=== PATIENT | female | born 1970 | race Caucasian/White ===

== ENCOUNTER 2024-10-11 08:51 | Day surgery (SDC) | payer OTHER ==
[2024-10-07 15:27] VITALS: BMI 41.1
[2024-10-11 09:16] VITALS: TEMP 97.6
[2024-10-11] MEDS: LACTATED RINGERS 1,000 ML IV SCH (09:19)
[2024-10-11] MEDS: LIDOCAINE 1% (10MG/ML) FOR IV START INTRADERMA STA (09:20)
[2024-10-11] MEDS: IV FLUID CONTINUATION 1,000 ML IV ONE (09:20)
[2024-10-11 09:40] LABS: Glucose,Whole Blood 79 mg/dL (70-110)
[2024-10-11] MEDS ORDERED: PROPOFOL 10 MG/ML 20 ML VIAL IV ONE (09:58)
[2024-10-11] MEDS ORDERED: LIDOCAINE 1% INJ 10MG/ML (20 ML MDV) ONE (09:58)
--- NOTE | 2024-10-11 10:02 | P.GSHP ---
History of Present Illness H&P Date: 10/11/24 Chief Complaint: Colon cancer screening 54-year-old female here for colonoscopy. She has not had 1 previously. Father with history of colon cancer. No bowel complaints. Past Medical History Past Medical History: Hypertension Additional Past Medical History / Comment(s): Pre- Diabetic History of Any Multi-Drug Resistant Organisms: None Reported Past Surgical History: Tonsillectomy Additional Past Surgical History / Comment(s): [place] Past Anesthesia/Blood Transfusion Reactions: No Reported Reaction Smoking Status: Never smoker - Past Family History Mother Family Medical History: No Reported History Father Family Medical History: Cancer Additional Family Medical History / Comment(s): Colon Medications and Allergies Home Medications Medication Instructions Recorded Confirmed Type lisinopriL 2.5 mg PO DAILY 10/07/24 10/07/24 History Allergies Allergy/AdvReac Type Severity Reaction Status Date / Time No Known Allergies Allergy Verified 10/11/24 09:46 Surgical - Exam Vital Signs Temp Pulse Resp BP Pulse Ox 97.6 F 86 16 144/96 100 10/11/24 09:14 10/11/24 09:14 10/11/24 09:14 10/11/24 09:14 10/11/24 09:14 Physical exam: General: Well-developed, well-nourished HEENT: Normocephalic, sclerae nonicteric Abdomen: Nontender, nondistended Extremities: No edema Neuro: Alert and oriented Assessment and Plan (1) Colon cancer screening Narrative/Plan: Will proceed with colonoscopy at this time. Current Visit: Yes Status: Acute Code(s): Z12.11 - ENCOUNTER FOR SCREENING FOR MALIGNANT NEOPLASM OF COLON SNOMED Code(s): 170572410
--- NOTE | 2024-10-11 10:17 | P.PCN ---
Date of Procedure: 10/11/24 Procedure(s) Performed: PREOPERATIVE DIAGNOSIS: Colon cancer screening, family history of colon cancer POSTOPERATIVE DIAGNOSIS: Transverse colon polyp x 2, diverticulosis PROCEDURE: Colonoscopy with snare polypectomy ANESTHESIA: MAC SURGEON: Yann Maldonado M.D. SPECIMENS: Polyps ENDOSCOPIC PROCEDURE: The patient was placed on the endoscopy table in the left decubitus position. The Olympus colonoscope was inserted into the anus and passed under direct visualization to the base of the cecum. The appendiceal orifice was visualized. From that point the scope was slowly withdrawn inspecting all surfaces carefully. There were no neoplastic inflammatory or polypoid lesions throughout the cecum and ascending colon. In the transverse colon she was smaller polyps were found and removed using the snare with cautery technique. The remainder of the transverse descending sigmoid and rectum was normal. The patient had mild scattered diverticulosis. Digital rectal examination was normal. The patient was taken to the recovery room in stable condition per anesthesia guidelines. RECOMMENDATIONS: Await biopsy results. Repeat colonoscopy likely in 5 years.
[2024-10-11 10:44] VITALS: BP 143/94; PULSE 71; RESP 18
== END 2024-10-11 11:00 | disposition home or self-care (01) ==
LOC: ORWHC2ENDO 08:51
PROVIDERS: ATTEND Surgery
DX: Z12.11 Encounter for screening for malignant neoplasm of colon (principal); Z80.0 Family history of malignant neoplasm of digestive organs; D12.3 Benign neoplasm of transverse colon; K57.30 Diverticulosis of large intestine without perforation or abscess without bleeding; I10 Essential (primary) hypertension; R73.03 Prediabetes
CPT/HCPCS: 45385; J2003; J2704; 88305